=== PATIENT | female | born 1990 | race African-American/Black ===

== ENCOUNTER 2019-08-19 08:36 | Emergency (ER) | payer SELFPAY ==
[~2019-08-19] VITALS: Ht 160 cm; Wt 81.0 kg
[2019-08-19 09:40] VITALS: BP 135/80
== END 2019-08-19 09:48 | disposition home or self-care (01) ==
LOC: ER 08:36
DX: J40 Bronchitis, not specified as acute or chronic (principal)
CPT/HCPCS: 99283